=== PATIENT | female | born 1950 | race Two or more races ===

== ENCOUNTER 2018-03-31 09:58 | Emergency (ER) | payer BC, MEDICAID ==
[~2018-03-31] VITALS: Ht 152.4 cm; Wt 67.1 kg
[2018-03-31 10:55] LABS: Basophils # (auto) 0.1 uL; Basophils % (auto) 1.3 % (0.0-2.0); Eosinophils # (auto) 0.1 uL; Eosinophils % (auto) 1.3 % (0.0-7.0); Hematocrit 42.7 % (36.0-46.0); Hemoglobin 14.5 g/dL (12.2-16.2); Lymphocytes # (auto) 1.8 uL; Lymphocytes % (auto) 19.4 % (10.0-50.0); Mean Corpuscular Hemoglobin 32.9 pg (28.0-32.0); Mean Corpuscular Volume 96.9 fL (80.0-100.0); Monocytes # (auto) 0.6 uL; Monocytes % (auto) 6.8 % (0.0-12.0); Neutrophils # (auto) 6.5 uL; Neutrophils % (auto) 71.2 % (37.0-80.0); Platelet Count (auto) 238 10^3/uL (140-450); Red Cell Distribution Width 14.4 % (11.8-14.3); White Blood Cell 9.2 10^3/uL (4.4-10.8)
[2018-03-31 11:33] LABS: Alanine Aminotransferase 46 U/L (13-56); Albumin 3.6 g/dL (3.4-5.0); Alkaline Phosphatase 107 U/L (45-117); Anion Gap 8 (5-15); Aspartate Aminotransferase 32 U/L (15-37); BUN/Creatinine Ratio 17.9; Bilirubin, Total 0.7 mg/dL (0.2-1.0); Blood Urea Nitrogen 20 mg/dL (7-18); Carbon Dioxide 26 mmol/L (21-32); Chloride 106 mmol/L (98-107); GFR African American 62 mL/min; GFR Non-African American 51 mL/min; Glucose 109 mg/dL (74-106); Magnesium 2.5 mg/dL (1.6-2.6); Potassium 4.2 mmol/L (3.5-5.1); Sodium 140 mmol/L (136-145); Total Protein 7.2 g/dL (6.4-8.2)
[2018-03-31] MEDS ORDERED: ASPirin 81 mg TAB PO ONE (11:45)
[2018-03-31 11:47] VITALS: BP 137/48
[2018-03-31] MEDS ORDERED: PANTOPRAZOLE 40 MG TAB PO ONE ×2 (11:49→12:00)
[2018-03-31 12:03] LABS: Urine Bacteria NONE SEEN /hpf (None Seen); Urine Blood Negative /uL (Negative); Urine Specific Gravity 1.013 (1.001-1.035); Urine WBC 2 /hpf (0 - 5)
[2018-03-31] MEDS ORDERED: BOOST 8 ounces PO SCH (12:45)
[2018-03-31] MEDS ORDERED: FUROSEMIDE 40 MG/4 ML VIAL IV ONE (13:30)
== END 2018-03-31 15:22 | disposition home or self-care (01) ==
LOC: ER 09:58
DX: I11.0 Hypertensive heart disease with heart failure (principal); I50.9 Heart failure, unspecified; R07.89 Other chest pain
CPT/HCPCS: 36415; 71045; 80053; 81001; 83735; 83880; 84484; 85025; 93005; 94761; 96374; 99285; J1940